=== PATIENT | male | born 1945 | race Caucasian/White ===

== ENCOUNTER 2018-01-29 06:42 | Day surgery (SDC) | payer OTHER ==
[~2018-01-29] VITALS: Ht 170.2 cm; Wt 76.4 kg
[~2018-01-29 06:42] MED LIST: FOLI1TAB PO; LEVA500T33 PO; LEVO.05 PO; LORT5TAB PO; METH2.5 PO; MINO100 PO; ZITH500T PO
[2018-01-29] MEDS ORDERED: DEXT 5%-NACL 0.45% 1000 ML INJ 1,000 ML IV SCH (07:00)
[2018-01-29 07:14] VITALS: BP 136/80; PULSE 61; RESP 18; TEMP 98.1; O2SAT 99
[2018-01-29] MEDS ORDERED: VITA1000 PO (07:27)
[2018-01-29] MEDS ORDERED: METH2.5T PO (07:27)
[2018-01-29] MEDS ORDERED: SIMV40TA PO (07:27)
[2018-01-29] MEDS ORDERED: FOLI800T PO (07:27)
[2018-01-29] MEDS ORDERED: LEVO88TA2 PO (07:27)
[2018-01-29] MEDS ORDERED: MINO100 PO (07:27)
[2018-01-29] MEDS ORDERED: CHLORHEXIDINE GLUCONATE 2 % 1 PACK (2 CLOTHS) TOPICAL PRN (07:45)
[2018-01-29] MEDS ORDERED: SODIUM CHLORID 0.9% 500 ML IV PRN (07:45)
[2018-01-29] MEDS ORDERED: LACTATED RINGER'S 1000 ML IV PRN (07:45)
[2018-01-29] MEDS ORDERED: POVIDONE IODINE 5% (ANTISEPSIS KIT) 4 APPLICATIONS EACH NARE PRN (07:45)
[2018-01-29] MEDS ORDERED: METOPROLOL TARTRATE 25 MG TAB PO PRN (07:45)
[2018-01-29 07:57] LABS: AUTOMATED NEUTROPHIL # 5.9 TH/MM3 (1.8-7.7); BASOPHIL % 0.6 % (0.0-2.0); EOSINOPHIL # 0.3 TH/MM3 (0-0.4); EOSINOPHIL % 3.6 % (0.0-4.0); HEMATOCRIT 39.7 % (39.0-51.0); HEMOGLOBIN 14.1 GM/DL (13.0-17.0); LYMPH % 10.8 % (9.0-44.0); LYMPHOCYTE # 0.8 TH/MM3 (1.0-4.8); MEAN CELL VOLUME 97.9 FL (80.0-100.0); MEAN CORPUSCULAR HEMOGLOBIN 34.9 PG (27.0-34.0); MEAN CORPUSCULAR HGB CONC 35.6 % (32.0-36.0); MEAN PLATELET VOLUME 8.3 FL (7.0-11.0); MONO % 8.1 % (0.0-8.0); MONOCYTE # 0.6 TH/MM3 (0-0.9); NEUT % 76.9 % (16.0-70.0); PLATELET COUNT 186 TH/MM3 (150-450); RED BLOOD COUNT 4.05 MIL/MM3 (4.50-5.90); RED CELL DISTRIBUTION WIDTH 14.8 % (11.6-17.2); WHITE BLOOD COUNT 7.7 TH/MM3 (4.0-11.0)
[2018-01-29 08:06] LABS: PROTHROMBIN TIME - PATIENT 10.1 SEC (9.8-11.6)
[2018-01-29 08:11] LABS: BICARBONATE 27.2 MEQ/L (21.0-32.0); CALCIUM 8.6 MG/DL (8.5-10.1); CREATININE 1.1 MG/DL (0.60-1.30)
--- NOTE | 2018-01-29 08:43 | EKG ---
Date Performed: 01/29/2018 Time Performed: 07:29:55 PTAGE: 72 years EKG: SINUS BRADYCARDIA POSSIBLE RIGHT VENTRICULAR CONDUCTION DELAY BORDERLINE ECG PREVIOUS TRACING : 10/13/2009 07.03 No significant change from previous tracing noted. DOCTOR: Randy Jeffries Interpretating Date/Time 01/29/2018 08:42:06
[2018-01-29] MEDS ORDERED: DO NOT ADM ANY ANTICOAGULANT DRUGS PRN (08:46)
--- NOTE | 2018-01-29 09:19 | MP ---
cc: Florina Heaton MD DATE OF OPERATION: 01/29/2018 PROCEDURE PERFORMED: Fiberoptic bronchoscopy, flexible REASON FOR BRONCHOSCOPY: Persistent cough, lung nodules, rule out underlying malignancy of chronic inflammatory process. Fiberoptic bronchoscopy performed via LMA. Vocal cords visualized appeared intact. Trachea mildly hyperemic. Thick mucoid secretions throughout the tracheobronchial tree noted all removed. The dino is sharp. The right main stem bronchus, right upper, middle, and lower lobe; left main bronchus, left upper and lower lobe inspected. No obstructive pathology or mass lesion seen. Washings obtained from both sides of the tracheobronchial tree for routine TB, fungal cultures, as well as cytological exam. Procedure well tolerated. The patient transferred to the recovery room in stable condition. IMPRESSION: 1. Moderate tracheobronchitis. 2. Excess mucoid secretion and plugging. 3. Samples obtained as above. 4. Procedure well tolerated. 5. The patient transferred to recovery in stable condition. Florina Heaton MD WWW/DL , 09:10 AM , 09:18 AM
[2018-01-29 09:25] VITALS: BP 111/68; PULSE 57; RESP 20; TEMP 97.6; O2SAT 99
[2018-01-29 10:20] VITALS: BP 120/71; PULSE 51; RESP 16; O2SAT 98
--- NOTE | 2018-01-29 11:02 | RADRPT ---
EXAM DATE/TIME: 01/29/2018 10:06 [place] COMPARISON: No previous studies available for comparison. INDICATIONS : Pneumothorax. Patient states no chest complaints. MEDICAL HISTORY : None. SURGICAL HISTORY : None. ENCOUNTER: Initial ACUITY: 1 day PAIN SCORE: 0/10 LOCATION: Bilateral chest FINDINGS: PA lateral views the chest show mild chronic interstitial changes. Tiny left effusion. No pneumothora x. Heart is normal in size. CONCLUSION: Tiny left pleural effusion. No pneumothorax. Denis Herman Jr., MD on January 29, 2018 at 11:00 Board Certified Radiologist. This report was verified electronically.
== END 2018-01-29 11:40 | disposition home or self-care (01) ==
LOC: HROP 06:42 → HRIP 06:50 → HROP 11:40
PROVIDERS: ATTEND Internal Medicine Sleep Medicine
DX: R05 Cough (principal); R91.1 Solitary pulmonary nodule; J40 Bronchitis, not specified as acute or chronic; J90 Pleural effusion, not elsewhere classified; R06.00 Dyspnea, unspecified; M06.9 Rheumatoid arthritis, unspecified; Z01.810 Encounter for preprocedural cardiovascular examination; Z01.818 Encounter for other preprocedural examination
CPT/HCPCS: 00520; 31623; 71046; 80048; 85025; 85610; 85730; 87015; 87070; 87102; 87116; 87205; 87206; 88112; 88305; 93005; J3010